=== PATIENT | female | born 1975 | race Caucasian/White ===

== ENCOUNTER 2024-08-14 05:47 | Emergency (ER) | payer OTHER ==
[~2024-08-14] VITALS: Ht 160 cm; Wt 61.2 kg
[~2024-08-14 05:47] MED LIST: ABILIFY10 MG PO; BUPROPION HCL150 M2 PO; CARBAMAZEPINE200 MG PO; REMERON15 MG PO
[2024-08-14 06:02] VITALS: PULSE 84; RESP 18; TEMP 98.4; O2SAT 98
[2024-08-14] MEDS ORDERED: AMOX TR-K CLV1 EAC2 PO (06:14)
[2024-08-14] MEDS: TRAMADOL HCL 50 MG TAB PO ONE (06:15)
== END 2024-08-14 06:25 | disposition home or self-care (01) ==
LOC: ER 06:06
DX: R60.9 Edema, unspecified (principal); K02.9 Dental caries, unspecified; F31.9 Bipolar disorder, unspecified
CPT/HCPCS: 99283